=== PATIENT | male | born 1985 | race Caucasian/White ===

== ENCOUNTER 2018-02-16 18:00 | Inpatient (IN) ==
[2018-02-16] MEDS ORDERED: Propofol 1000 mg/100 ml Inj 1,000 MG/100 ML BOTTLE ONE (23:30)
[2018-02-17] MEDS ORDERED: Midazolam 50 MG/50 ML Inj 50 MG/50 ML BAG IV.CONT PRN
[2018-02-17] MEDS ORDERED: Magnesium Sulfate Inj 2 GM in Sodium Chlor 0.9% Inj 96 ML IV.SIG PRN ×2
[2018-02-17] MEDS ORDERED: Potassium Chloride 25 MEQ Effervescent Tablet PO PRN
[2018-02-17] MEDS ORDERED: Magnesium Sulfate Inj 4 GM in Sodium Chlor 0.9% Inj 92 ML IV.SIG PRN ×2
[2018-02-17] MEDS ORDERED: Potassium Phosphate 500 MG Soluble Tablet PO PRN ×2
[2018-02-17] MEDS ORDERED: Sodium Phosphate Inj 30 MMOL in Sodium Chlor 0.9% Inj 250 ML IV.SIG PRN ×2
[2018-02-17] MEDS ORDERED: Propofol 1000 mg/100 ml Inj 1,000 MG/100 ML BOTTLE IV.CONT PRN
[2018-02-17] MEDS ORDERED: Potassium Chlor 20 mEq Premix 20 MEQ/100 ML PIGGYBACK IV.SIG PRN
[2018-02-17] MEDS ORDERED: Bisacodyl 10 MG Supp RECTAL PRN
[2018-02-17] MEDS ORDERED: Potassium Phosphate Inj 30 MMOL in Sodium Chlor 0.9% Inj 250 ML IV.SIG PRN ×2
[2018-02-17] MEDS ORDERED: fentaNYL 10 mcg/mL Premix Drip 2,500 MCG/250 ML BAG IV.SIG PRN
[2018-02-17] MEDS ORDERED: Magnesium Oxide 400 MG Tablet PO PRN
[2018-02-17] MEDS: Sod Chloride 0.9% Inj 1,000 ML IV.SIG SCH ×3 (03:26→23:50)
[2018-02-17] MEDS: Chlorhexidine Gluconate 2% 1 Pack (2 Cloths) TOPICAL SCH (03:27)
[2018-02-17] MEDS: Oral Hygiene Kit OROPHARYNG SCH ×4 (03:27→20:43)
[2018-02-17] MEDS ORDERED: Chlorhexidine Gluconate 2% 1 Pack (2 Cloths) TOPICAL PRN (04:00)
[2018-02-17 06:03] LABS: Baso % (Auto) 0.2 % (0.0-2.0); Eos # (Auto) 0.3 th/mm3 (0.0-0.4); Hematocrit 46.4 % (39.0-51.0); Hemoglobin 15.7 gm/dL (13.0-17.0); Lymph # (Auto) 2.6 th/mm3 (1.0-4.8); Lymph % (Auto) 22.6 % (9.0-44.0); Mean Corpuscular HGB Conc 33.9 % (32.0-36.0); Mean Corpuscular Hemoglobin 31.8 pg (27.0-34.0); Mean Platelet Volume 9.8 fL (7.0-11.0); Mono # (Auto) 1.1 th/mm3 (0.0-0.9); Mono % (Auto) 9.7 % (0.0-8.0); Neut # (Auto) 7.3 th/mm3 (1.8-7.7); Neut % (Auto) 64.5 % (16.0-70.0); Platelet Count 170 th/mm3 (150-450); Red Blood Count 4.93 mil/mm3 (4.50-5.90); Red Cell Distribution Width 13.4 % (11.6-17.2); White Blood Count 11.4 th/mm3 (4.0-11.0)
[2018-02-17 06:32] LABS: Amylase 50 U/L (25-115); Lipase 165 U/L (73-393)
[2018-02-17 06:34] LABS: Albumin 3.7 g/dL (3.4-5.0); Calcium 7.4 mg/dL (8.5-10.1); Carbon Dioxide 22.7 meq/L (21.0-32.0); Magnesium 1.9 mg/dL (1.5-2.5); Phosphorus 2.7 mg/dL (2.5-4.9); Potassium 3.4 meq/L (3.5-5.1); Total Protein 7.2 g/dL (6.4-8.2)
[2018-02-17 06:36] LABS: Cholesterol 168 mg/dL (120-200); Triglycerides 166 mg/dL (42-150)
[2018-02-17 06:49] LABS: Chol/HDL Ratio 4.97 Ratio; Creatine Kinase 1058 U/L (39-308); HDL Cholesterol 33.8 mg/dL (40.0-60.0); LDL Cholesterol,Calculated 101 mg/dL (0-99); Thyroid Stimulating Hormone 0.875 uIU/mL (0.358-3.740)
--- NOTE | 2018-02-17 06:51 | P.PNCC ---
Subjective Subjective Remarks/Hospital Course: This is what appears to be a middle-aged gentleman with multiple tattoos. Date of admission 02/16/2018. Originally admitted under the trauma service with a GCS of 3 near a type of bar possibly near a swimming pool as patient does smell of chlorine. Patient was altered and unresponsive. He was given both midazolam and etomidate in the field but was unsuccessfully attempted intubated. He successfully intubated her after receiving propofol, succinylcholine at this facility Trauma alert was called. Due to unequal pupils, 1 dose of mannitol was provided. Patient had a CT of the brain, C-spine, chest abdomen pelvis revealed pulmonary contusion only. No other acute findings. Multiple laboratories are currently pending pupils are currently reactive. Urine tox screen, EtOH level pending. We were asked to take over care from trauma. No family is available. There is no other information available the present time and multiple laboratories are currently pending SUBJ 02/17/18: Family is at the bedside. On sedation hold patient wakes up and follows commands. I do not see an indication for MRI at this time. We will plan for CPAP trial to wean to extubate Objective Vital Signs / I&O: Vital Signs 02/16/18 23:00 02/17/18 00:00 02/17/18 04:00 Temperature 97.6 F 97.6 F 97.4 F L Pulse Rate 66 66 85 Respiratory Rate 16 16 16 Blood Pressure 99/67 L 99/67 L 107/71 Pulse Oximetry 100 100 100 02/17/18 04:59 Temperature Pulse Rate 85 Respiratory Rate 16 Blood Pressure Pulse Oximetry 99 Intake & Output 02/16/18 02/16/18 02/17/18 06:59 18:59 06:59 Intake Total 20 / 20 Output Total 2700 / 2700 Balance -2680 / -2680 Weight 84.5 kg Intake: IV 20 / 20 Diprivan 1000 mg/100 ml Inj 1, 20 / 20 000 mg In 100 ml @ 0 mls/hr . ROUTE .[id number] ONE Rx#:[id number] Output: Urine Amount (Catheter) 2700 / 2700 Indwelling Temp Sensing 2700 / 2700 Catheter Other: Weight On Admission 85.8 kg Result Diagrams: 02/17/18 05:43 02/17/18 05:43 Objective Remarks: GENERAL: Middle-aged male currently orotracheally intubated, wakes up easily, follows commands 4 SKIN: Warm and dry. Multiple tattoos thorax/upper extremities HEAD: Atraumatic. Normocephalic. EYES: Pupils equal and round about 5 mm bilaterally and reactive. No scleral icterus. No injection or drainage. ENT: No nasal bleeding or discharge. Mucous membranes pink and moist. OG tube in place NECK: Trachea midline. No JVD. CARDIOVASCULAR: Regular rate and rhythm. S1, S2. No S4. Without murmur RESPIRATORY: No accessory muscle use. Clear to auscultation. Breath sounds equal bilaterally. GASTROINTESTINAL: Abdomen soft, non-tender, nondistended. Hypoactive bowel sounds. MUSCULOSKELETAL: Extremities without significant peripheral edema. No obvious deformities. NEUROLOGICAL: Intubated on sedation hold patient wakes up nods his heas, follows commands 4. Nonfocal exam Assessment and Plan - Assessment and Plan Plan: Assessment and Plan Neuro/Psych: Altered mental status/acute encephalopathy Alcohol intoxication CT brain 02/16 revealed no acute intracranial finding along with CT C-spine MRI brain/MRI C-spine ordered-cancel as patient is following commands EEG ordered-DC Currently on propofol/fentanyl drips for sedation/analgesia while intubated- discontinue for weaning trials Goal of RASS -0 Daily sedation vacation Supplement thiamine and multivitamin CV: Lactic acidosis Patient is currently in normal saline at 84 cc an hour Repeat lactic acid in afternoon Resp: Acute respiratory failure [facility] 16/08/24/44. CPAP trial for possible extubatioo Ventilator bundle Albuterol/ipratropium aerosols every 4 hours with albuterol aerosols every 2 hours as needed dyspnea CT thorax revealed pulmonary contusion/lower lobe atelectasis. GI: Patient is currently n.p.o. NGT to [facility] Lansoprazole for GI prophylaxis Docusate sodium/senna 1 tablet twice daily for bowel regimen CT abdomen/pelvis revealed no acute findings Endo: SSI with Novulin R with Accu-Cheks every 6 hours to maintain euglycemia/low regimen Check TSH Renal: Creatinine currently within normal limits Monitor urine output Accurate I's and O Heme: CBC and coags within normal limits Recheck in a.m. ID: Monitor for signs and symptomatology of infection Blood cultures 2 ordered FEN: Hypernatremia Replace electrolytes per ICU electrolyte protocol Access -Utilize peripheral IV. Central line if indicated Prophylax -GI -lansoprazole -DVT -SCD/heparin subcu Level 3 Code Status Full code Plan: Wean to extubate. AMS most likely from alcohol intoxication Code Status: Full Code
[2018-02-17 07:02] LABS: CKMB Percent 0.4 % (0.0-4.0); Creatine Kinase MB 4.1 ng/mL (0.5-3.6)
[2018-02-17 07:05] LABS: INR 1.1 Ratio; Prothrombin Time 10.7 sec (9.8-11.6)
[2018-02-17] MEDS: Senna/Docusate Sodium 8.6/50 MG Tablet PO SCH ×2 (09:10→20:42)
[2018-02-17] MEDS: Folic Acid 1 MG Tablet PO SCH (09:11)
[2018-02-17] MEDS: Heparin - SQ 10,000 UNITS/ML Vial SQ SCH ×2 (09:11→20:42)
[2018-02-17] MEDS: Chlorhexidine 0.12% Oral Kit 15 ML UDC OROPHARYNG SCH ×2 (09:14→20:42)
[2018-02-17] MEDS: Potassium Chlor 20 mEq Premix 20 MEQ/100 ML PIGGYBACK IV.SIG PRN ×2 (09:24→11:12)
[2018-02-17] MEDS: Artificial Tears Opth Drops 15 ML Bottle EACH EYE SCH ×3 (11:10→20:42)
[2018-02-17] MEDS: Thiamine Inj 100 MG in Sodium Chlor 0.9% Inj 100 ML IV.SIG SCH (11:22)
[2018-02-18] MEDS: Oral Hygiene Kit OROPHARYNG SCH ×3 (01:24→20:49)
[2018-02-18] MEDS: Chlorhexidine Gluconate 2% 1 Pack (2 Cloths) TOPICAL SCH (05:36)
[2018-02-18] MEDS: Thiamine Inj 100 MG in Sodium Chlor 0.9% Inj 100 ML IV.SIG SCH (08:45)
[2018-02-18] MEDS: Senna/Docusate Sodium 8.6/50 MG Tablet PO SCH ×2 (08:46→21:13)
[2018-02-18] MEDS: Folic Acid 1 MG Tablet PO SCH (08:47)
[2018-02-18] MEDS: Chlorhexidine 0.12% Oral Kit 15 ML UDC OROPHARYNG SCH ×2 (08:48→21:13)
[2018-02-18] MEDS: Artificial Tears Opth Drops 15 ML Bottle EACH EYE SCH ×2 (08:49→20:48)
[2018-02-18] MEDS: Heparin - SQ 10,000 UNITS/ML Vial SQ SCH ×2 (08:56→21:12)
--- NOTE | 2018-02-18 11:54 | P.PNIM ---
Subjective Interval history: Patient states that he feels much better. Denies chest pain or sob at the moment. patient still tachycardic Physical Exam Vital signs: Vital Signs 02/17/18 12:00 02/17/18 12:46 02/17/18 16:00 Temperature 99.7 F H 97.7 F Pulse Rate 120 H 86 114 H Respiratory Rate 20 15 19 Blood Pressure 124/87 139/101 H Pulse Oximetry 97 97 02/17/18 16:13 02/17/18 20:00 02/17/18 22:09 Temperature 98.1 F Pulse Rate 99 H 114 H 111 H Respiratory Rate 26 H 13 Blood Pressure 142/92 H Pulse Oximetry 99 02/17/18 22:10 02/18/18 04:00 02/18/18 08:00 Temperature 99.3 F 98.4 F Pulse Rate 101 H 103 H Respiratory Rate 18 Blood Pressure 166/104 H 159/110 H Pulse Oximetry 100 98 02/18/18 08:31 Temperature Pulse Rate 106 H Respiratory Rate 18 Blood Pressure Pulse Oximetry 99 Intake & Output 02/17/18 02/18/18 02/18/18 18:59 06:59 18:59 Intake Total 1901 / 1901 1240 / 1240 Output Total 1200 / 1200 1650 / 1650 Balance 701 / 701 -410 / -410 Weight 83.915 kg 83.915 kg Intake: IV 1201 / 1201 1000 / 1000 KCl 20 mEq Premix Inj 20 meq In 100 / 100 100 ml @ 50 mls/hr IV.SIG Q2H PRN Rx#:[id number] NS Inj 1,000 ML @ 84 mls/hr IV. 1000 / 1000 1000 / 1000 SIG .[id number] SILAS Rx#:[id number] Thiamine Inj 100 MG In NS Inj 101 / 101 100 ML @ 100 mls/hr IV.SIG DAILY SILAS Rx#:[id number] Oral 700 / 700 240 / 240 Output: Urine 1200 / 1200 1650 / 1650 Other: # Voids 3 Date of Last Bowel Movement 02/14/18 02/14/18 - Constitutional no acute distress - Routine HEENT Exam Head: Present: normocephalic Eye: Present: EOMI, PERRL ENT: Present: mucous membranes moist - Routine Neck Exam Present: supple - Routine Respiratory Exam Present: CTA bilaterally - Routine Abdominal Exam Present: soft, normoactive bowel sounds - Routine Skin Exam Present: intact - Routine Neurological Exam Present: alert, oriented X3, CN II-XII intact - Urinary Catheter Management Indwelling Temp Sensing Catheter Cath placed during this visit: yes, but has since been removed by the nurse Removal date: 02/17/18 Removal time: 11:00 Results - Labs CBC & Chem 7: 02/17/18 05:43 02/18/18 11:30 Assessment and Plan - Plan Neuro/Psych: Toxic Encephalopathy Alcohol intoxication CT brain 02/16 revealed no acute intracranial finding along with CT C-spine MRI brain/MRI C-spine ordered-cancel as patient is following commands EEG ordered-DC Currently on propofol/fentanyl drips for sedation/analgesia while intubated- discontinue for weaning trials Goal of RASS -0 Supplement thiamine and multivitamin CT abdomen/pelvis revealed no acute findings 02/18 sp intubation and mechanical ventilation - extubated and doing well Lactic acidosis Patient is currently in normal saline at 84 cc an hour 02/18 lactic acid still elevated yesterday at 3.5. Repeat lactic acid. Acute respiratory failure Albuterol/ipratropium aerosols every 4 hours with albuterol aerosols every 2 hours as needed dyspnea CT thorax revealed pulmonary contusion/lower lobe atelectasis. 02/18 Patient still requiring 3 liters of O2 on nasal canula. Continue supplemental oxygen. Hyperglycemia Likely stress induced. check hemoglobin A1c. Continue SSI w insulin novolog. Normal TSH Renal: Creatinine currently within normal limits Monitor urine output Accurate I's and O Heme: CBC and coags within normal limits Recheck in a.m. ID: Monitor for signs and symptomatology of infection Blood cultures 2 ordered - negative Hypernatremia Resolved. Monitor BMP Replace electrolytes per ICU electrolyte protocol Access -Utilize peripheral IV. Central line if indicated Prophylax -GI -lansoprazole -DVT -SCD/heparin subcu Code Status: Full code Discharge Planning: Possible Dc in am pending clinical improvement. Progress Note: Quality - VTE Deep Vein Thrombosis/Pulmonary Embolism Present on Admission: No
[2018-02-18 13:01] LABS: Alanine Aminotransferase 38 U/L (12-78); Albumin 3.1 g/dL (3.4-5.0); Alkaline Phosphatase 72 U/L (45-117); Anion Gap 9 meq/L (5-15); Aspartate Aminotransferase 24 U/L (15-37); Blood Urea Nitrogen 6 mg/dL (7-18); Calcium 8.4 mg/dL (8.5-10.1); Carbon Dioxide 28.1 meq/L (21.0-32.0); Chloride 104 meq/L (98-107); Glomerular Filtration Rate Greater Than 89 mL/min (>89); Glucose,Random 131 mg/dL (74-106); Potassium 3.6 meq/L (3.5-5.1); Sodium 141 meq/L (136-145)
[2018-02-18] MEDS: Sod Chloride 0.9% Inj 1,000 ML IV.SIG SCH (20:49)
[2018-02-19] MEDS: Sod Chloride 0.9% Inj 1,000 ML IV.SIG SCH (06:32)
[2018-02-19] MEDS: Oral Hygiene Kit OROPHARYNG SCH ×2 (06:33→06:34)
[2018-02-19] MEDS: Chlorhexidine Gluconate 2% 1 Pack (2 Cloths) TOPICAL SCH (06:34)
[2018-02-19] MEDS: Senna/Docusate Sodium 8.6/50 MG Tablet PO SCH (09:07)
[2018-02-19] MEDS: Folic Acid 1 MG Tablet PO SCH (09:07)
[2018-02-19] MEDS: Chlorhexidine 0.12% Oral Kit 15 ML UDC OROPHARYNG SCH (11:39)
[2018-02-19] MEDS: Heparin - SQ 10,000 UNITS/ML Vial SQ SCH (11:40)
[2018-02-19] MEDS: Artificial Tears Opth Drops 15 ML Bottle EACH EYE SCH (11:41)
--- NOTE | 2018-02-19 13:56 | P.PNIM ---
Subjective Interval history: This is what appears to be a middle-aged gentleman with multiple tattoos. Date of admission 02/16/2018. Originally admitted under the trauma service with a GCS of 3 near a type of bar possibly near a swimming pool as patient does smell of chlorine. Patient was altered and unresponsive. He was given both midazolam and etomidate in the field but was unsuccessfully attempted intubated. He successfully intubated her after receiving propofol, succinylcholine at this facility Trauma alert was called. Due to unequal pupils, 1 dose of mannitol was provided. Patient had a CT of the brain, C-spine, chest abdomen pelvis revealed pulmonary contusion only. No other acute findings. Multiple laboratories are currently pending pupils are currently reactive. Urine tox screen, EtOH level pending. We were asked to take over care from trauma. No family is available. There is no other information available the present time and multiple laboratories are currently pending SUBJ 02/17/18: Family is at the bedside. On sedation hold patient wakes up and follows commands. I do not see an indication for MRI at this time. We will plan for CPAP trial to wean to extubate 7-2 Patient states that he feels much better. Denies chest pain or sob at the moment. patient still tachycardic 7-3 FEELS MUCH BETTER CAN DC TO HOME WITH HIS MOTHER DC TO HOME TODAY NO ALCOHOL OR ILLEGAL MEDS FOLLOW UP WITH PCP Physical Exam Vital signs: Vital Signs 02/18/18 16:00 02/18/18 16:24 02/18/18 20:00 Temperature 98.4 F 98.8 F Pulse Rate 104 H 106 H 122 H Respiratory Rate 23 16 22 Blood Pressure 140/106 H Pulse Oximetry 100 99 02/18/18 20:57 02/18/18 23:20 02/18/18 23:21 Temperature Pulse Rate 81 100 H Respiratory Rate 16 22 Blood Pressure Pulse Oximetry 93 L 02/19/18 00:00 02/19/18 03:34 02/19/18 03:45 Temperature 98 F 98.7 F Pulse Rate 132 H 130 H Respiratory Rate 18 18 Blood Pressure 135/98 H 163/95 H 138/94 H Pulse Oximetry 96 91 L 95 02/19/18 06:32 02/19/18 08:00 02/19/18 12:07 Temperature 98.3 F Pulse Rate 109 H 119 H 111 H Respiratory Rate 20 19 17 Blood Pressure 137/100 H Pulse Oximetry 95 94 L Intake & Output 02/18/18 02/19/18 02/19/18 18:59 06:59 18:59 Intake Total 1701 / 1701 600 / 600 Output Total 1200 / 1200 Balance 501 / 501 600 / 600 Weight 81.8 kg Intake: IV 1101 / 1101 NS Inj 1,000 ML @ 84 mls/hr IV. 1000 / 1000 SIG .[id number] SILAS Rx#:[id number] Thiamine Inj 100 MG In NS Inj 101 / 101 100 ML @ 100 mls/hr IV.SIG DAILY SILAS Rx#:[id number] Oral 600 / 600 600 / 600 Output: Urine 1200 / 1200 Other: # Voids 1 Date of Last Bowel Movement 02/14/18 02/14/18 Narrative: GENERAL: Awake alert and oriented 3 talkative and cooperative SKIN: Warm and dry. HEAD: Atraumatic. Normocephalic. EYES: Pupils equal and round. No scleral icterus. No injection or drainage. ENT: No nasal bleeding or discharge. Mucous membranes pink and moist. NECK: Trachea midline. No JVD. Supple S1-S2 no S3 or S4 CARDIOVASCULAR: Regular rate and rhythm. RESPIRATORY: No accessory muscle use. Clear to auscultation. Breath sounds equal bilaterally. GASTROINTESTINAL: Abdomen soft, non-tender, nondistended. Hepatic and splenic margins not palpable. MUSCULOSKELETAL: Extremities without clubbing, cyanosis, or edema. No obvious deformities. NEUROLOGICAL: Awake and alert. No obvious cranial nerve deficits. Motor grossly within normal limits. Five out of 5 muscle strength in the arms and legs. Normal speech. PSYCHIATRIC: Appropriate mood and affect; insight and judgment normal. - Urinary Catheter Management Indwelling Temp Sensing Catheter Cath placed during this visit: yes, but has since been removed by the nurse Reason for continuing: Continue criteria not met Removal date: 02/17/18 Removal time: 11:00 Results - Labs CBC & Chem 7: 02/17/18 05:43 02/18/18 11:30 - Procedures Was on the ventilator Assessment and Plan - Assessment (1) Alcohol abuse Code(s): F10.10 - Alcohol abuse, uncomplicated Status: Acute (2) Hypernatremia Code(s): E87.0 - Hyperosmolality and hypernatremia Status: Acute (3) Respiratory failure Code(s): J96.90 - Respiratory failure, unspecified, unspecified whether with hypoxia or hypercapnia Status: Acute - Plan Toxic Encephalopathy Alcohol intoxication CT brain 02/16 revealed no acute intracranial finding along with CT C-spine MRI brain/MRI C-spine ordered-cancel as patient is following commands EEG ordered-DC Currently on propofol/fentanyl drips for sedation/analgesia while intubated- discontinue for weaning trials Goal of RASS -0 Supplement thiamine and multivitamin CT abdomen/pelvis revealed no acute findings 02/18 sp intubation and mechanical ventilation - extubated and doing well Lactic acidosis Patient is currently in normal saline at 84 cc an hour 02/18 lactic acid still elevated yesterday at 3.5. Repeat lactic acid. Acute respiratory failure Albuterol/ipratropium aerosols every 4 hours with albuterol aerosols every 2 hours as needed dyspnea CT thorax revealed pulmonary contusion/lower lobe atelectasis. 02/18 Patient still requiring 3 liters of O2 on nasal canula. Continue supplemental oxygen. Hyperglycemia Likely stress induced. check hemoglobin A1c. Continue SSI w insulin novolog. Normal TSH Renal: Creatinine currently within normal limits Monitor urine output Accurate I's and O Heme: CBC and coags within normal limits Recheck in a.m. ID: Monitor for signs and symptomatology of infection Blood cultures 2 ordered - negative Hypernatremia Resolved. Monitor BMP Replace electrolytes per ICU electrolyte protocol Access -Utilize peripheral IV. Central line if indicated Prophylax -GI -lansoprazole -DVT -SCD/heparin subcu DC to home today Code Status: Full code Discussed Condition With: RN and patient Discharge Planning: Discharge to home today with mother
[2018-02-19 14:04] LABS: Baso % (Auto) 0.4 % (0.0-2.0); Eos # (Auto) 0.2 th/mm3 (0.0-0.4); Eos % (Auto) 2.4 % (0.0-4.0); Hemoglobin 15.2 gm/dL (13.0-17.0); Lymph # (Auto) 1.4 th/mm3 (1.0-4.8); Lymph % (Auto) 15.1 % (9.0-44.0); Mean Corpuscular HGB Conc 34.5 % (32.0-36.0); Mean Corpuscular Hemoglobin 32.4 pg (27.0-34.0); Mean Platelet Volume 10.3 fL (7.0-11.0); Mono # (Auto) 0.6 th/mm3 (0.0-0.9); Mono % (Auto) 7.1 % (0.0-8.0); Neut # (Auto) 6.8 th/mm3 (1.8-7.7); Platelet Count 135 th/mm3 (150-450); Red Blood Count 4.68 mil/mm3 (4.50-5.90); Red Cell Distribution Width 13.3 % (11.6-17.2); White Blood Count 9.1 th/mm3 (4.0-11.0)
--- NOTE | 2018-02-19 14:07 | P.DS ---
Date of admission: 02/16/18 18:26 Primary care physician: UNKNOWN Attending physician on discharge: Regis Diaz Anticipated date of discharge: 02/19/18 Brief History from admission: This is what appears to be a middle-aged gentleman with multiple tattoos. Date of admission 02/16/2018. Originally admitted under the trauma service with a GCS of 3 near a type of bar possibly near a swimming pool as patient does smell of chlorine. Patient was altered and unresponsive. He was given both midazolam and etomidate in the field but was unsuccessfully attempted intubated. He successfully intubated her after receiving propofol, succinylcholine at this facility Trauma alert was called. Due to unequal pupils, 1 dose of mannitol was provided. Patient had a CT of the brain, C-spine, chest abdomen pelvis revealed pulmonary contusion only. No other acute findings. Multiple laboratories are currently pending pupils are currently reactive. Urine tox screen, EtOH level pending. We were asked to take over care from trauma. No family is available. There is no other information available the present time and multiple laboratories are currently pending SUBJ 02/17/18: Family is at the bedside. On sedation hold patient wakes up and follows commands. I do not see an indication for MRI at this time. We will plan for CPAP trial to wean to extubate 7-2 Patient states that he feels much better. Denies chest pain or sob at the moment. patient still tachycardic 7-3 FEELS MUCH BETTER CAN DC TO HOME WITH HIS MOTHER DC TO HOME TODAY NO ALCOHOL OR ILLEGAL MEDS FOLLOW UP WITH PCP DS: Diagnosis - Discharge Diagnosis (1) Alcohol abuse Status: Acute (2) Hypernatremia Status: Acute (3) Respiratory failure Status: Resolved DS: Medications - Discharge Medications Prescriptions: folic acid 1 mg PO DAILY #30 tab multivitamin with folic acid [Thera] 1 tab PO DAILY #30 tab thiamine HCl (vitamin B1) 100 mg IV DAILY #30 ml DS: Summary Hospital Course: This is what appears to be a middle-aged gentleman with multiple tattoos. Date of admission 02/16/2018. Originally admitted under the trauma service with a GCS of 3 near a type of bar possibly near a swimming pool as patient does smell of chlorine. Patient was altered and unresponsive. He was given both midazolam and etomidate in the field but was unsuccessfully attempted intubated. He successfully intubated her after receiving propofol, succinylcholine at this facility Trauma alert was called. Due to unequal pupils, 1 dose of mannitol was provided. Patient had a CT of the brain, C-spine, chest abdomen pelvis revealed pulmonary contusion only. No other acute findings. Multiple laboratories are currently pending pupils are currently reactive. Urine tox screen, EtOH level pending. We were asked to take over care from trauma. No family is available. There is no other information available the present time and multiple laboratories are currently pending SUBJ 02/17/18: Family is at the bedside. On sedation hold patient wakes up and follows commands. I do not see an indication for MRI at this time. We will plan for CPAP trial to wean to extubate 7-2 Patient states that he feels much better. Denies chest pain or sob at the moment. patient still tachycardic 7-3 FEELS MUCH BETTER CAN DC TO HOME WITH HIS MOTHER DC TO HOME TODAY NO ALCOHOL OR ILLEGAL MEDS FOLLOW UP WITH PCP - Time Spent with Patient Total time spent providing and/or coordinating discharge services: 32 Greater than 30 minutes - Quality: VTE Deep Vein Thrombosis/Pulmonary Embolism Present on Admission: No Exam Vital signs: Vital Signs 02/18/18 16:00 02/18/18 16:24 02/18/18 20:00 Temperature 98.4 F 98.8 F Pulse Rate 104 H 106 H 122 H Respiratory Rate 23 16 22 Blood Pressure 140/106 H Pulse Oximetry 100 99 02/18/18 20:57 02/18/18 23:20 02/18/18 23:21 Temperature Pulse Rate 81 100 H Respiratory Rate 16 22 Blood Pressure Pulse Oximetry 93 L 02/19/18 00:00 02/19/18 03:34 02/19/18 03:45 Temperature 98 F 98.7 F Pulse Rate 132 H 130 H Respiratory Rate 18 18 Blood Pressure 135/98 H 163/95 H 138/94 H Pulse Oximetry 96 91 L 95 02/19/18 06:32 02/19/18 08:00 02/19/18 12:07 Temperature 98.3 F Pulse Rate 109 H 119 H 111 H Respiratory Rate 20 19 17 Blood Pressure 137/100 H Pulse Oximetry 95 94 L Intake & Output 02/18/18 02/19/18 02/19/18 18:59 06:59 18:59 Intake Total 1701 / 1701 600 / 600 Output Total 1200 / 1200 Balance 501 / 501 600 / 600 Weight 81.8 kg Intake: IV 1101 / 1101 NS Inj 1,000 ML @ 84 mls/hr IV. 1000 / 1000 SIG .[id number] SILAS Rx#:[id number] Thiamine Inj 100 MG In NS Inj 101 / 101 100 ML @ 100 mls/hr IV.SIG DAILY SILAS Rx#:[id number] Oral 600 / 600 600 / 600 Output: Urine 1200 / 1200 Other: # Voids 1 Date of Last Bowel Movement 02/14/18 02/14/18 Narrative: GENERAL: Awake alert and oriented 3 talkative and cooperative SKIN: Warm and dry. HEAD: Atraumatic. Normocephalic. EYES: Pupils equal and round. No scleral icterus. No injection or drainage. ENT: No nasal bleeding or discharge. Mucous membranes pink and moist. NECK: Trachea midline. No JVD. Supple S1-S2 no S3 or S4 CARDIOVASCULAR: Regular rate and rhythm. RESPIRATORY: No accessory muscle use. Clear to auscultation. Breath sounds equal bilaterally. GASTROINTESTINAL: Abdomen soft, non-tender, nondistended. Hepatic and splenic margins not palpable. MUSCULOSKELETAL: Extremities without clubbing, cyanosis, or edema. No obvious deformities. NEUROLOGICAL: Awake and alert. No obvious cranial nerve deficits. Motor grossly within normal limits. Five out of 5 muscle strength in the arms and legs. Normal speech. PSYCHIATRIC: Appropriate mood and affect; insight and judgment normal. Results Procedures completed during hospitalization: Was on the ventilator Labs on day of discharge: Labs from last 24 hours 02/19/18 12:35 WBC Pending RBC Pending Hgb Pending Hct Pending Plt Count Pending WBC Differential Pending Differential Comment Pending Discharge Plan - Discharge Disposition Patient Disposition: 01 Discharge Home - Discharge Condition Condition: Good - Discharge Order Discharge Orders: Discharge Order (Routine); Ordered 02/19/18 Ordered By: Regis Diaz - Discharge Details Anticipated Discharge Date: 02/19/18 Discharge Comment: DC TO HOME - Physicians Team Primary Care Provider: UNKNOWN, Attending Provider: Regis Diaz Other Providers: Willam Hart MD - Rxs /Orders / Referrals /Forms Prescriptions: New folic acid 1 mg Tablet 1 mg PO DAILY Qty: 30 RF: 0 multivitamin with folic acid [Thera] 400 mcg Tablet 1 tab PO DAILY Qty: 30 RF: 0 thiamine HCl (vitamin B1) 100 mg/mL Solution 100 mg IV DAILY Qty: 30 RF: 0 No Action No Known Home Medications Referrals: UNKNOWN, [Primary Care Provider] - See Instructions (IN 2 TO 3 DAY)
[2018-02-19 19:04] LABS: Hemoglobin A1c 5.2 % (4.3-6.0)
[2018-02-22 08:40] LABS: Lactate Dehydrogenase 356 U/L (87-241)
== END 2018-02-19 15:48 | disposition home or self-care (01) ==
LOC: EDBD 18:26 → NEDA 18:26 → N03 18:38 → N06 02-19 01:17
PROVIDERS: ADMIT Hospitalist; ATTEND Hospitalist